=== PATIENT | male | born 2000 | race Caucasian/White ===

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

== ENCOUNTER 2023-11-18 12:54 | Emergency (ER) | payer MEDICAID ==
[2023-11-18 13:10] VITALS: BP 136/69; O2SAT 99
[2023-11-18 13:23] LABS: BILIRUBIN,URINE NEGATIVE (NEGATIVE); GLUCOSE, URINE (UA) NEGATIVE (NEGATIVE); KETONES,URINE (UA) NEGATIVE (NEGATIVE); LEUKOCYTE ESTERASE, URINE NEGATIVE (NEGATIVE); NITRITE,URINE NEGATIVE (NEGATIVE); OCCULT BLOOD,URINE NEGATIVE (NEGATIVE); PROTEIN,URINE 100 mg/dL (NEGATIVE); UROBILINOGEN,URINE 0.2 (NORMAL) E.U./dL (NORMAL)
[2023-11-18 13:25] LABS: CLARITY,URINE CLEAR (CLEAR)
[2023-11-18 13:26] LABS: BASOPHILS # (AUTO) 0.1 10^3/uL (0.0-0.1); BASOPHILS % (AUTO) 0.7 %; EOSINOPHILS # (AUTO) 0.1 10^3/uL (0.0-0.7); EOSINOPHILS % (AUTO) 0.7 %; HCT - HEMATOCRIT 45.6 % (42.0-52.0); HGB - HEMOGLOBIN 15.3 g/dL (14.0-18.0); LYMPHOCYTES # (AUTO) 1.6 10^3/uL (1.5-3.5); LYMPHOCYTES % (AUTO) 22.8 %; MEAN CORPUSCULAR HEMOGLOBIN 30.2 pg (27.0-31.0); MEAN CORPUSCULAR HGB CONC 33.6 g/dL (32.0-36.0); MEAN CORPUSCULAR VOLUME 89.9 fL (80.0-94.0); MEAN PLATELET VOLUME 9.3 fL (7.4-11.4); MONOCYTES # (AUTO) 0.4 10^3/uL (0.0-1.0); MONOCYTES % (AUTO) 5.6 %; NEUTROPHILS # (AUTO) 4.9 10^3/uL (1.5-6.6); NEUTROPHILS % (AUTO) 70.1 %; PLT - PLATELET COUNT 238 10^3/uL (130-450); RED BLOOD COUNT 5.07 10^6/uL (4.70-6.10); RED CELL DISTRIBUTION WIDTH 12.9 % (12.0-15.0)
[2023-11-18 13:29] LABS: BACTERIA,URINE None Seen /HPF (None Seen); MUCUS,URINE Few Strands; RBC,URINE 0-5 /HPF (0-5); SQUAMOUS EPITHELIAL CELL,UR FEW Squamous (<= Few); WBC,URINE 0-3 /HPF (0-3)
[2023-11-18 13:48] LABS: ALBUMIN 4.9 g/dL (3.2-5.5); ALBUMIN/GLOBULIN RATIO 1.9 (1.0-2.2); ALKALINE PHOSPHATASE 53 IU/L (42-121); ALT ALANINE AMINOTRANSFERASE 11 IU/L (10-60); AST ASPARTATE AMINOTRANSFERASE 14 IU/L (10-42); BILIRUBIN,TOTAL 1.4 mg/dL (0.2-1.0); BUN - BLOOD UREA NITROGEN 13 mg/dL (6-20); CALCIUM 9.6 mg/dL (8.5-10.3); CARBON DIOXIDE - CO2 29 mmol/L (21-32); CHLORIDE 103 mmol/L (101-111); CREATININE 1.2 mg/dL (0.6-1.3); GFR - MDRD 76 (>89); GLUCOSE 81 mg/dL (74-104); POTASSIUM 4.4 mmol/L (3.5-4.5); SODIUM 139 mmol/L (135-145); TOTAL PROTEIN 7.5 g/dL (6.4-8.9)
[2023-11-18 13:53] LABS: LIPASE < 10 U/L (11-82)
== END 2023-11-18 15:36 | disposition left against medical advice (07) ==
LOC: ED 12:54
DX: Z53.21 Procedure and treatment not carried out due to patient leaving prior to being seen by health care provider (principal)
CPT/HCPCS: 36415; 80053; 81001; 81003; 83690; 85025; 87086

== ENCOUNTER 2024-02-15 06:35 | Emergency (ER) | payer MEDICAID ==
[2024-02-15 06:54] VITALS: O2SAT 98
--- NOTE | 2024-02-15 07:41 | ED Physician Documentation ---
PD HPI MALE - Stated complaint Stated Complaint: - Chief complaint Chief Complaint: UTI - History obtained from History obtained from: Patient - History of Present Illness Timing - onset: How many days ago (4) Timing - duration: Days (4) Timing - details: Gradual onset, Still present Associated symptoms: Dysuria, Urinary frequency. No: Unable to urinate, Discharge PD HPI MALE CONTRIB FACTORS: Sexually active Similar symptoms before: Has not had sx before Review of Systems Constitutional: denies: Fever, Chills, Myalgias Nose: reports: Rhinorrhea / runny nose, Congestion Respiratory: reports: Cough (for 2-3 days, along with others in household. Dysuria preceded that by few days.) PD PAST MEDICAL HISTORY - Past Medical History Past Medical History: Yes Cardiovascular: None Respiratory: None Neuro: Seizure disorder Endocrine/Autoimmune: None GI: None : Dialysis, Other HEENT: None Psych: Depression, Anxiety, Bipolar disorder Musculoskeletal: None Derm: Other Other Past Medical History: UTI - Past Surgical History Past Surgical History: No - Present Medications Home Medications: Ambulatory Orders Medication Instructions Recorded Confirmed Ketamine HCl in 0.9 % NaCl 80 mg PO 02/22/19 [Ketamine 10 mg/ml-0.9% NaCl] Ibuprofen [Motrin] 800 mg PO Q8H PRN #30 tablet 11/21/19 Ondansetron Odt [Zofran] 4 mg TL Q6H PRN #10 tablet 11/21/19 Ondansetron Odt [Zofran] 4 mg TL Q6H PRN #10 tablet 02/15/24 Phenazopyridine HCl [Pyridium] 100 mg PO TID PRN #15 tablet 02/15/24 Sulfamethox/Trimeth 800/160 1 each PO BID #14 tablet 02/15/24 [Bactrim Ds 800/160] - Allergies Allergies/Adverse Reactions: Allergies Allergy/AdvReac Type Severity Reaction Status Date / Time buspirone [From BuSpar] Allergy Anxiety Verified 02/15/24 06:53 - Social History Does the pt smoke?: Yes Smoking Status: Current every day smoker Does the pt drink ETOH?: No Does the pt have substance abuse?: Yes - Immunizations Immunizations are current?: Yes - POLST Patient has POLST: No PD ED PE NORMAL - Vitals Vital signs reviewed: Yes - General General: Alert and oriented X 3, No acute distress, Well developed/nourished - Abdomen Abdomen: Soft, Non tender - Male Male : Deferred - Rectal Rectal: Deferred - Derm Derm: Normal color, Warm and dry Results - Vitals Vitals: Vital Signs - 24 hr 02/15/24 02/15/24 06:42 08:20 Temperature 37.3 C Heart Rate 60 62 Respiratory 18 16 Rate Blood Pressure 127/60 124/64 O2 Saturation 98 98 Oxygen O2 Source Room air - Labs Labs: Laboratory Tests 02/15/24 02/15/24 07:41 07:41 Urine Color DARK YELLOW Urine Clarity CLEAR Urine pH 6.0 Ur Specific [place] 1.020 Urine Protein 30 H Urine Glucose (UA) NEGATIVE Urine Ketones NEGATIVE Urine Occult Blood NEGATIVE Urine Nitrite NEGATIVE Urine Bilirubin NEGATIVE Urine Urobilinogen 0.2 (NORMAL) Ur Leukocyte Esterase TRACE H Urine RBC 0-5 Urine WBC 0-3 Ur Squamous Epith Cells RARE Squamous Urine Bacteria Few Ur Microscopic Review INDICATED Urine Culture Comments INDICATED Chlam trachomat DNA PCR NEGATIVE N.gonorrhoeae DNA (PCR) NEGATIVE T. vaginalis (PCR) NEGATIVE PD Medical Decision Making - ED course Complexity details: considered differential (dysuria and UA is showing some signs of UTI. ), d/w patient Departure - Departure Disposition: 01 Home, Self Care Clinical Impression: Dysuria, Flu-like symptoms, UTI (urinary tract infection) Condition: Stable Record reviewed to determine appropriate education?: Yes Instructions: ED UTI Cystitis Male Prescriptions: Sulfamethox/Trimeth 800/160 [Bactrim Ds 800/160] 1 each PO BID #14 tablet Phenazopyridine HCl [Pyridium] 100 mg PO TID PRN #15 tablet PRN Reason: Abdominal Pain Ondansetron Odt [Zofran] 4 mg TL Q6H PRN #10 tablet PRN Reason: Nausea / Vomiting Comments: Your urine sample is showing some white cells and small amount of bacteria consistent with a an infection and would corroborate your symptoms. We can go with Bactrim antibiotic twice daily and phenazopyridine initially to help with symptoms for the first couple of days while the Bactrim antibiotic is clearing the infection. Stay well-hydrated. Tylenol ibuprofen if needed for fevers and pains. You can use ondansetron/Zofran if needed for the nausea associated with your flulike symptoms as well. It be unusual to have the discomfort urinating preceding a flulike illness so we are treating it as a separate distinct bacterial infection. We will do a urine culture on this and call you if we need to change the antibiotic choice based on that. I would anticipate improvement over the next couple of days. Symptoms should be lessened with the phenazopyridine and Tylenol or such as well. I sent your prescriptions to [facility] in [place]. Return if worsening. Discharge Date/Time: 02/15/24 08:21
[2024-02-15 07:50] LABS: BILIRUBIN,URINE NEGATIVE (NEGATIVE); GLUCOSE, URINE (UA) NEGATIVE (NEGATIVE); KETONES,URINE (UA) NEGATIVE (NEGATIVE); LEUKOCYTE ESTERASE, URINE TRACE (NEGATIVE); NITRITE,URINE NEGATIVE (NEGATIVE); OCCULT BLOOD,URINE NEGATIVE (NEGATIVE); PROTEIN,URINE 30 mg/dL (NEGATIVE); UROBILINOGEN,URINE 0.2 (NORMAL) E.U./dL (NORMAL)
[2024-02-15 07:52] LABS: CLARITY,URINE CLEAR (CLEAR)
[2024-02-15 08:03] LABS: BACTERIA,URINE Few /HPF (None Seen); RBC,URINE 0-5 /HPF (0-5); SQUAMOUS EPITHELIAL CELL,UR RARE Squamous (<= Few); WBC,URINE 0-3 /HPF (0-3)
[2024-02-15] MEDS: ONDANSETRON ODT 4 MG TABLET TL STA (08:17)
[2024-02-15] MEDS: SULFAMETH/TRIMETH DS 800/160 MG TABLET PO STA (08:17)
[2024-02-15] MEDS: PHENAZOPYRIDINE 100 MG TABLET PO STA (08:17)
[2024-02-15 08:24] VITALS: BP 124/64
[2024-02-15 10:59] LABS: CHLAMYDIA TRACHOMATIS DNA NEGATIVE (NEGATIVE); NEISSERIA GONORRHOEAE DNA NEGATIVE (NEGATIVE); TRICHOMONAS VAGINALIS DNA NEGATIVE (NEGATIVE)
== END 2024-02-15 08:21 | disposition home or self-care (01) ==
LOC: ED 06:35
DX: N39.0 Urinary tract infection, site not specified (principal); R05.9 Cough, unspecified; I10 Essential (primary) hypertension; F17.200 Nicotine dependence, unspecified, uncomplicated
CPT/HCPCS: 81001; 87086; 87491; 87591; 87661; 99283; A9270; Q0162; 81003

== ENCOUNTER 2024-03-04 06:26 | Emergency (ER) | payer MEDICAID ==
[2024-03-04 06:52] LABS: BILIRUBIN,URINE NEGATIVE (NEGATIVE); GLUCOSE, URINE (UA) NEGATIVE (NEGATIVE); KETONES,URINE (UA) NEGATIVE (NEGATIVE); LEUKOCYTE ESTERASE, URINE NEGATIVE (NEGATIVE); NITRITE,URINE NEGATIVE (NEGATIVE); OCCULT BLOOD,URINE NEGATIVE (NEGATIVE); PROTEIN,URINE TRACE mg/dL (NEGATIVE); UROBILINOGEN,URINE 0.2 (NORMAL) E.U./dL (NORMAL)
[2024-03-04 06:58] LABS: CLARITY,URINE HAZY (CLEAR)
[2024-03-04 07:04] LABS: RBC,URINE None Seen /HPF (0-5); SQUAMOUS EPITHELIAL CELL,UR RARE Squamous (<= Few); WBC,URINE 0-3 /HPF (0-3)
[2024-03-04 07:05] LABS: AMORPHOUS SEDIMENT,UR Few /LPF; BACTERIA,URINE None Seen /HPF (None Seen)
--- NOTE | 2024-03-04 08:09 | ED Physician Documentation ---
History of Present Illness - Stated complaint Stated Complaint: - Chief complaint Chief Complaint: UTI - History obtained from History obtained from: Patient - Additonal information Additional information: The patient returns to the emergency department chief complaint of ongoing dysuria. He states that he was seen here on the fourth for dysuria and frequency and that he was treated with antibiotics he thinks for 5 days for UTI. He states the symptoms did resolve and that after the antibiotic course was done, he was asymptomatic for a few days. He then began to notice that the dysuria and frequency were creeping back. He states it has been about a week and 1/2 to 2 weeks since he finished the course and he believes it was a 5-day course of antibiotics. He has had symptoms again for about a week and states that he just constantly feels as though he needs to urinate. He tries to urinate standing up but nothing comes out so he sits down on the toilet and tries to force the urine to come out. He states it feels like when he had a UTI before. Patient denies any fevers or chills. No nausea or vomiting. He has some discomfort in his low abdomen but otherwise is without other symptoms. However, he does endorse some discharge or cloudy appearance when he first urinates. He has a history of herpes but has not noticed any vesicles or ulcerations. Review of his records reveals that he had a mild uptick in bacteria and white cells and was treated presumptively for UTI. He was tested for STDs including gonorrhea and chlamydia and found to be negative. His culture results came back as polymicrobial and likely contamination and so sensitivity was not done. PD PAST MEDICAL HISTORY - Past Medical History Past Medical History: Yes Cardiovascular: None Respiratory: None Neuro: Seizure disorder Endocrine/Autoimmune: None GI: None : Dialysis, Other HEENT: None Psych: Depression, Anxiety, Bipolar disorder, Schizophrenia, Post traumatic stress disorder Musculoskeletal: None Derm: Other Other Past Medical History: UTI - Past Surgical History Past Surgical History: Yes - Present Medications Home Medications: Ambulatory Orders Medication Instructions Recorded Confirmed Azithromycin [Zithromax] 500 mg PO DAILY #7 tablet 03/04/24 Phenazopyridine HCl [Pyridium] 200 mg PO TID PRN #6 tablet 03/04/24 Ziprasidone [Geodon] 40 mg PO TID 03/04/24 03/04/24 cloNIDine HCL [Clonidine HCl] 1 tab PO BID 03/04/24 03/04/24 lamoTRIgine [Lamictal] 200 mg PO DAILY 03/04/24 03/04/24 - Allergies Allergies/Adverse Reactions: Allergies Allergy/AdvReac Type Severity Reaction Status Date / Time buspirone [From BuSpar] Allergy Anxiety Verified 03/04/24 06:41 - Social History Does the pt smoke?: Yes Smoking Status: Current every day smoker Does the pt drink ETOH?: No Does the pt have substance abuse?: Yes - Immunizations Immunizations are current?: Yes - POLST Patient has POLST: No PD ED PE NORMAL - Vitals Vital signs reviewed: Yes - General General: Alert and oriented X 3, No acute distress, Well developed/nourished - HEENT HEENT: Atraumatic, EOMI, Moist mucous membranes - Neck Neck: Supple, no meningeal sign - Respiratory Respiratory: No respiratory distress - Abdomen Abdomen: Soft, Non tender, Non distended - Male Male : Other (Normal male genitalia, mild discharge from urethral meatus, no lesions) - Derm Derm: Normal color, Warm and dry, No rash - Extremities Extremities: No deformity - Neuro Neuro: Alert and oriented X 3 - Psych Psych: Normal mood, Normal affect Results - Vitals Vitals: Oxygen O2 Source Room air - Labs Labs: Laboratory Tests 03/04/24 06:35 Urine Color YELLOW Urine Clarity HAZY Urine pH 7.0 Ur Specific [place] 1.015 Urine Protein TRACE Urine Glucose (UA) NEGATIVE Urine Ketones NEGATIVE Urine Occult Blood NEGATIVE Urine Nitrite NEGATIVE Urine Bilirubin NEGATIVE Urine Urobilinogen 0.2 (NORMAL) Ur Leukocyte Esterase NEGATIVE Urine RBC None Seen Urine WBC 0-3 Ur Squamous Epith Cells RARE Squamous Amorphous Sediment Few Urine Bacteria None Seen Ur Microscopic Review INDICATED Urine Culture Comments NOT INDICATED PD Medical Decision Making - ED course Complexity details: reviewed results, re-evaluated patient, considered differential, d/w patient ED course: I d/w pt that his UA is negative today, as was his STD testing last time. We will test for Mycoplasma genitalium, and I will treat him presumptively. His UA from last time showed likely contaminants with skin bacteria, with no clear-cut agent dominating, so I am not retreating for UTI. We have discussed the need for follow-up with urology if the sx continue after abx this time. Departure - Departure Disposition: 01 Home, Self Care Clinical Impression: Dysuria Condition: Stable Instructions: ED Dysuria Uncertain Cause, ED Urethritis Infec Vs Inflam Male Follow-Up: Carlos Krause MD [Provider Admit Priv/Credential] - Prescriptions: Phenazopyridine HCl [Pyridium] 200 mg PO TID PRN #6 tablet PRN Reason: dysuria Azithromycin [Zithromax] 500 mg PO DAILY #7 tablet Comments: It is not clear exactly what is causing the burning and constant urge to urinate. Your urinalysis from a couple of weeks ago showed mixed bacteria that are probably contaminant from the outside, and nothing in particular that was growing out of control in your urine. Your urinalysis at that time was also minimally positive for signs of infection. It looks like you were treated for a week with a type of antibiotic that is generally quite effective for urinary tract infection. Your test for gonorrhea and chlamydia at that time were negative. Your urinalysis today is completely normal. We have sent off a test for a more rare STD that does not generally respond to the usual antibiotics for urinary tract infection and we will let you know if this comes back positive. We will give you a course of antibiotics that would cover this and other atypical bacteria, but I would say that if you are not noticing relief of your symptoms after this, then the problem is likely not a bacterial infection and you need to follow-up with urologist for further evaluation. The contact info rmation for their office has been provided here. Please also call your primary doctor to make an appointment to follow-up as well. The prescriptions for your medications have been electronically transmitted to the [facility] pharmacy in [place]. Please pick them up there today. Forms: PCP List Discharge Date/Time: 03/04/24 08:49
[2024-03-04 08:57] VITALS: BP 115/63; O2SAT 98
== END 2024-03-04 08:49 | disposition home or self-care (01) ==
LOC: ED 06:26
DX: R30.0 Dysuria (principal); F17.200 Nicotine dependence, unspecified, uncomplicated
CPT/HCPCS: 81001; 81003; 81599; 87086; 99283

== ENCOUNTER 2024-05-03 09:42 | Emergency (ER) | payer MEDICAID ==
[2024-05-03 10:01] VITALS: BP 133/70; O2SAT 100
--- NOTE | 2024-05-03 10:15 | ED Physician Documentation ---
History of Present Illness - Stated complaint Stated Complaint: - Chief complaint Chief Complaint: UTI - History obtained from History obtained from: Patient - Additonal information Additional information: The patient returns to the emergency department chief complaint of dysuria. He has been having this chronically on and off and has been at various times diagnosed with bacterial UTI and with candidal infection once. The patient was seen here in the emergency department in February twice and the most recent time, was tested for mycoplasma this came back negative. His previous culture in early February had shown mixed emily most likely contaminant. He was treated presumptively the first time for UTI and the second time for mycoplasma only. He states he since followed up with [facility] urology and they placed him on a 2- week course of medication to help with the dysuria. He states it helped him for about 5 days afterward but then, he redeveloped dysuria about a week and a half ago. He states he tried calling his urologist office before coming here but they are not open and there are [place] location today and he states he could not go to [place] so he came to the ER instead. No fevers or chills. No nausea or vomiting. No abdominal pain. No blood in his urine. No other complaints at this time. He states he is not having any penile discharge. PD PAST MEDICAL HISTORY - Past Medical History Cardiovascular: Hypertension Respiratory: None Neuro: Seizure disorder Endocrine/Autoimmune: None GI: None : Dialysis, Other HEENT: None Psych: Depression, Anxiety, Bipolar disorder, Schizophrenia, Post traumatic stress disorder Musculoskeletal: None Derm: Other - Past Surgical History Past Surgical History: Yes - Present Medications Home Medications: Ambulatory Orders Medication Instructions Recorded Confirmed Azithromycin [Zithromax] 500 mg PO DAILY #7 tablet 03/04/24 Phenazopyridine HCl [Pyridium] 200 mg PO TID PRN #6 tablet 03/04/24 Ziprasidone [Geodon] 40 mg PO TID 03/04/24 03/04/24 cloNIDine HCL [Clonidine HCl] 1 tab PO BID 03/04/24 03/04/24 lamoTRIgine [Lamictal] 200 mg PO DAILY 03/04/24 03/04/24 Phenazopyridine HCl [Pyridium] 200 mg PO TID PRN #6 tablet 05/03/24 - Allergies Allergies/Adverse Reactions: Allergies Allergy/AdvReac Type Severity Reaction Status Date / Time buspirone [From BuSpar] Allergy Anxiety Verified 05/03/24 09:58 - Social History Does the pt smoke?: Yes Smoking Status: Current every day smoker Does the pt drink ETOH?: No Does the pt have substance abuse?: Yes Substance Use and Type: Marijuana - Immunizations Immunizations are current?: Yes - POLST Patient has POLST: No PD ED PE NORMAL - Vitals Vital signs reviewed: Yes - General General: No acute distress, Well developed/nourished, Other (Alert, grossly oriented) - HEENT HEENT: Atraumatic, EOMI, Moist mucous membranes - Neck Neck: Supple, no meningeal sign - Cardiac Cardiac: RRR, No murmur - Respiratory Respiratory: No respiratory distress, Clear bilaterally - Abdomen Abdomen: Soft, Non tender, Non distended - Derm Derm: Normal color, Warm and dry, No rash - Extremities Extremities: No deformity - Neuro Neuro: Other (Alert, grossly intact) - Psych Psych: Normal mood, Normal affect Results - Vitals Vitals: Vital Signs - 24 hr 05/03/24 09:52 Temperature 36.0 C L Heart Rate 72 Respiratory 14 Rate Blood Pressure 133/70 H O2 Saturation 100 Oxygen O2 Source Room air - Labs Labs: Laboratory Tests 05/03/24 10:10 Urine Color YELLOW Urine Clarity CLEAR Urine pH 7.5 Ur Specific [place] 1.025 Urine Protein TRACE Urine Glucose (UA) NEGATIVE Urine Ketones NEGATIVE Urine Occult Blood NEGATIVE Urine Nitrite NEGATIVE Urine Bilirubin NEGATIVE Urine Urobilinogen 0.2 (NORMAL) Ur Leukocyte Esterase NEGATIVE Ur Microscopic Review NOT INDICATED Urine Culture Comments NOT INDICATED PD Medical Decision Making - ED course Complexity details: reviewed results, re-evaluated patient, considered differential, d/w patient ED course: The patient was worked up with urinalysis. UA was negative. I reviewed the patient's records and discussed with him that at this time, his last 3 urinalyses including today have either been negative or positive only for contaminants. I am not clear why he continues to have a sense of dysuria, but there is no role for antimicrobials at this time and I have directed the patient back to his urologist for his ongoing symptoms. I have prescribed Pyridium for symptomatic relief. We have discussed the need for follow-up with his urologist about this ongoing issue. Departure - Departure Disposition: 01 Home, Self Care Clinical Impression: Dysuria Condition: Stable Instructions: ED Dysuria Uncertain Cause Prescriptions: Phenazopyridine HCl [Pyridium] 200 mg PO TID PRN #6 tablet PRN Reason: dysuria Comments: Your urinalysis is completely normal today. This has been the case the last time you are here as well. It is not clear why you continue to have this discomfort, But there is no evidence of infection at this time, either with bacteria or yeast, and as such, there is no indication for antibiotics. A prescription for medication to help with the burning and discomfort has been electronically transmitted to the [facility] pharmacy in [place]. Please pick this up today and take as needed. Please make the next available appointment to follow up with your urologist, as this is going to be the best way to get to the bottom of your ongoing symptoms. Discharge Date/Time: 05/03/24 10:46
[2024-05-03 10:27] LABS: BILIRUBIN,URINE NEGATIVE (NEGATIVE); GLUCOSE, URINE (UA) NEGATIVE (NEGATIVE); KETONES,URINE (UA) NEGATIVE (NEGATIVE); LEUKOCYTE ESTERASE, URINE NEGATIVE (NEGATIVE); NITRITE,URINE NEGATIVE (NEGATIVE); OCCULT BLOOD,URINE NEGATIVE (NEGATIVE); PH,URINE 7.5 PH (5.0-7.5); PROTEIN,URINE TRACE mg/dL (NEGATIVE); UROBILINOGEN,URINE 0.2 (NORMAL) E.U./dL (NORMAL)
[2024-05-03 10:28] LABS: CLARITY,URINE CLEAR (CLEAR)
== END 2024-05-03 10:46 | disposition home or self-care (01) ==
LOC: ED 09:42
DX: R30.0 Dysuria (principal); I10 Essential (primary) hypertension; F17.200 Nicotine dependence, unspecified, uncomplicated
CPT/HCPCS: 81001; 81003; 87086; 99283; 99284

== ENCOUNTER 2024-05-17 15:02 | Emergency (ER) | payer MEDICAID ==
[2024-05-17 15:29] LABS: BILIRUBIN,URINE NEGATIVE (NEGATIVE); GLUCOSE, URINE (UA) NEGATIVE (NEGATIVE); KETONES,URINE (UA) TRACE mg/dL (NEGATIVE); LEUKOCYTE ESTERASE, URINE NEGATIVE (NEGATIVE); NITRITE,URINE NEGATIVE (NEGATIVE); OCCULT BLOOD,URINE NEGATIVE (NEGATIVE); PROTEIN,URINE 100 mg/dL (NEGATIVE); UROBILINOGEN,URINE 1 (NORMAL) E.U./dL (NORMAL)
[2024-05-17 15:32] LABS: CLARITY,URINE CLEAR (CLEAR)
[2024-05-17 15:47] LABS: BACTERIA,URINE None Seen /HPF (None Seen); MUCUS,URINE Few Strands; RBC,URINE 0-5 /HPF (0-5); SQUAMOUS EPITHELIAL CELL,UR RARE Squamous (<= Few); WBC,URINE 0-3 /HPF (0-3)
[2024-05-17] MEDS: PHENAZOPYRIDINE 100 MG TABLET PO STA (17:05)
[2024-05-17] MEDS: valACYclovir 500 MG TABLET PO SCH (17:05)
[2024-05-17 17:18] LABS: BASOPHILS % (AUTO) 0.5 %; EOSINOPHILS # (AUTO) 0.3 10^3/uL (0.0-0.7); EOSINOPHILS % (AUTO) 3.4 %; HCT - HEMATOCRIT 42.1 % (42.0-52.0); HGB - HEMOGLOBIN 14.2 g/dL (14.0-18.0); LYMPHOCYTES # (AUTO) 1.9 10^3/uL (1.5-3.5); MEAN CORPUSCULAR HEMOGLOBIN 30.5 pg (27.0-31.0); MEAN CORPUSCULAR HGB CONC 33.7 g/dL (32.0-36.0); MEAN CORPUSCULAR VOLUME 90.3 fL (80.0-94.0); MONOCYTES # (AUTO) 0.5 10^3/uL (0.0-1.0); MONOCYTES % (AUTO) 6.4 %; NEUTROPHILS # (AUTO) 4.7 10^3/uL (1.5-6.6); NEUTROPHILS % (AUTO) 63.6 %; PLT - PLATELET COUNT 204 10^3/uL (130-450); RED BLOOD COUNT 4.66 10^6/uL (4.70-6.10); RED CELL DISTRIBUTION WIDTH 12.9 % (12.0-15.0); WHITE BLOOD COUNT 7.5 x10^3/uL (4.8-10.8)
[2024-05-17 17:25] LABS: ALBUMIN 4.5 g/dL (3.2-5.5); ALBUMIN/GLOBULIN RATIO 2.1 (1.0-2.2); BILIRUBIN,TOTAL 0.7 mg/dL (0.2-1.0); CALCIUM 9.4 mg/dL (8.5-10.3); CREATININE 1.2 mg/dL (0.6-1.3); POTASSIUM 4.3 mmol/L (3.5-4.5); TOTAL PROTEIN 6.6 g/dL (6.4-8.9)
--- NOTE | 2024-05-17 17:52 | ED Physician Documentation ---
History of Present Illness - Stated complaint Stated Complaint: OUTBREAK - Chief complaint Chief Complaint: General - Additonal information Additional information: 23-year-old male presents with urinary discomfort. Reports several months urinary discomfort with small amount of micturition happening frequently. States that his discomfort has been increasing over the course of the last few days and now feels similar to his last herpes simplex outbreak. Reports does have some small sores on the glans of his penis. Has a single monogamous partner. Denies discharge from the penis, testicular swelling, clear visible vesicular sores, previous sexually transmitted infection. Review of Systems Constitutional: denies: Fever Eyes: denies: Loss of vision Ears: denies: Loss of hearing Nose: denies: Rhinorrhea / runny nose Throat: denies: Dental pain / toothache Cardiac: denies: Chest pain / pressure Respiratory: denies: Dyspnea GI: denies: Abdominal Pain : reports: Dysuria, Frequency PD PAST MEDICAL HISTORY - Past Medical History Past Medical History: No Cardiovascular: Hypertension Respiratory: None Neuro: Seizure disorder Endocrine/Autoimmune: None GI: None : None, Other HEENT: None Psych: Depression, Anxiety, Bipolar disorder, Schizophrenia, Post traumatic stress disorder Musculoskeletal: None Derm: Other - Past Surgical History Past Surgical History: Yes - Present Medications Home Medications: Ambulatory Orders Medication Instructions Recorded Confirmed Azithromycin [Zithromax] 500 mg PO DAILY #7 tablet 03/04/24 Phenazopyridine HCl [Pyridium] 200 mg PO TID PRN #6 tablet 03/04/24 Ziprasidone [Geodon] 40 mg PO TID 03/04/24 03/04/24 cloNIDine HCL [Clonidine HCl] 1 tab PO BID 03/04/24 03/04/24 lamoTRIgine [Lamictal] 200 mg PO DAILY 03/04/24 03/04/24 Phenazopyridine HCl [Pyridium] 200 mg PO TID PRN #6 tablet 05/03/24 Phenazopyridine HCl [Pyridium] 200 mg PO TID #6 tablet 05/17/24 valACYclovir [Valtrex] 500 mg PO BID #12 tablet 05/17/24 - Allergies Allergies/Adverse Reactions: Allergies Allergy/AdvReac Type Severity Reaction Status Date / Time buspirone [From BuSpar] Allergy Anxiety Verified 05/17/24 15:13 - Social History Does the pt smoke?: No Smoking Status: Never smoker Does the pt drink ETOH?: No Does the pt have substance abuse?: Yes Substance Use and Type: Marijuana - Immunizations Immunizations are current?: Yes - POLST Patient has POLST: No PD ED PE NORMAL - General General: Alert and oriented X 3, No acute distress, Well developed/nourished - HEENT HEENT: Atraumatic, PERRL, EOMI, Ears normal, Moist mucous membranes, Pharynx benign - Neck Neck: Supple, no meningeal sign, No bony TTP, No adenopathy, Thyroid normal, No JVD - Cardiac Cardiac: RRR, No gallop, Strong equal pulses - Respiratory Respiratory: No respiratory distress, Clear bilaterally - Abdomen Abdomen: Normal bowel sounds, Soft, Non tender, No organomegaly - Male Male : Other (There are some small areas of erythema or excoriation, none greater than half a millimeter in size noted on the glans of the penis. There are no other sores. There is no penile discharge. There is no testicular tenderness. There are no palpable hernias.) Results - Vitals Vitals: Vital Signs - 24 hr 05/17/24 15:13 Temperature 37.5 C Heart Rate 64 Respiratory 14 Rate Blood Pressure 106/61 O2 Saturation 99 Oxygen O2 Source Room air - Labs Labs: Laboratory Tests 05/17/24 05/17/24 05/17/24 15:12 17:07 17:07 WBC 7.5 RBC 4.66 L Hgb 14.2 Hct 42.1 MCV 90.3 MCH 30.5 MCHC 33.7 RDW 12.9 Plt Count 204 MPV 10.0 Neut # (Auto) 4.7 Lymph # (Auto) 1.9 [place] # (Auto) 0.5 Eos # (Auto) 0.3 Baso # (Auto) 0.0 Absolute Nucleated RBC 0.00 Nucleated RBC % 0.0 Sodium 137 Potassium 4.3 Chloride 104 Carbon Dioxide 27 Anion Gap 6.0 BUN 14 Creatinine 1.2 Estimated GFR (MDRD) 76 L Glucose 87 Calcium 9.4 Total Bilirubin 0.7 AST 10 ALT 8 L Alkaline Phosphatase 43 Total Protein 6.6 Albumin 4.5 Globulin 2.1 Albumin/Globulin Ratio 2.1 Lipase 10 L Urine Color YELLOW Urine Clarity CLEAR Urine pH 6.0 Ur Specific [place] >=1.030 H Urine Protein 100 H Urine Glucose (UA) NEGATIVE Urine Ketones TRACE Urine Occult Blood NEGATIVE Urine Nitrite NEGATIVE Urine Bilirubin NEGATIVE Urine Urobilinogen 1 (NORMAL) Ur Leukocyte Esterase NEGATIVE Urine RBC 0-5 Urine WBC 0-3 Ur Squamous Epith Cells RARE Squamous Urine Bacteria None Seen Urine Mucus Few Strands Ur Microscopic Review INDICATED Urine Culture Comments NOT INDICATED PD Medical Decision Making - ED course Complexity details: reviewed results, d/w patient ED course: 23-year-old male presents to the emergency department with urinary discomfort that has been ongoing times several months. Afebrile, he medically stable on arrival to the emergency department. Has been seen multiple times in the emergency department for similar presentations. Has had multiple STD screening exams which were negative. Additionally has been treated empirically for UTI and yeast infection though has not had any clearPathogen's on urine culture and the 1 completed culture 02/15/2024 showed polymicrobial species consistent with skin contaminant. He does not report that his symptoms feel "identical" to his last herpes simplex outbreak. Examination of the external genitalia is grossly normal although he does have some very small areas of erythema noted on the glans of the penis. There is no penile discharge, testicular swelling, epididymal swelling or or palpable hernias. His urine analysis does show some proteinuria, of uncertain clinical significance. Given the persistence of his symptoms I did obtain basic lab work which showed largely normal creatinine at 1.2, with an age-appropriate GFR no other significant abnormalities. Given that his symptoms have persisted and that he now endorses for similarity with his previous herpes simplex infection outbreaks I will prescribe a course of valacyclovir. I will also have him follow-up with urology for the persistence of his symptoms. Clear return precautions given prior to discharge. Departure - Departure Disposition: 01 Home, Self Care Clinical Impression: Dysuria Instructions: ED Dysuria Uncertain Cause Prescriptions: Phenazopyridine HCl [Pyridium] 200 mg PO TID #6 tablet valACYclovir [Valtrex] 500 mg PO BID #12 tablet Comments: Thank you for allowing us to care for you today at [facility]. Today in the emergency department you were evaluated for any possible dangerous or life-threatening medical emergency. The test performed in the emergency department today including your urine analysis and the blood work was all very reassuring. There is no indications of injury or decreased kidney function or clear signs infection in your urine. As we discussed given the similarity your symptoms are now showing to previous episodes of HSV outbreak I have written a prescription for some valacyclovir. Please fill this prescription and begin taking tomorrow. It is important however that you follow-up with a specialist given the duration of your symptoms for further treatment and evaluation. I have included the contact information for Dr. Krause, urology, in your discharge instructions. Please reach out to them as soon as able for follow-up. Again if it anytime you develop any new or worsening symptoms please not hesitate to return.
[2024-05-17 18:14] VITALS: BP 105/61; O2SAT 100
== END 2024-05-17 18:09 | disposition home or self-care (01) ==
LOC: ED 15:02
DX: R30.0 Dysuria (principal); Z86.19 Personal history of other infectious and parasitic diseases; I10 Essential (primary) hypertension; G40.909 Epilepsy, unspecified, not intractable, without status epilepticus
CPT/HCPCS: 36415; 80053; 81001; 83690; 85025; 99283; 99284; A9270; 81003; 87086